=== PATIENT | male | born 1980 | race Caucasian/White ===

== ENCOUNTER 2017-03-20 16:55 | Emergency (ER) | payer SELFPAY ==
[~2017-03-20] VITALS: Ht 175.3 cm; Wt 61.0 kg
[~2017-03-20 16:55] MED LIST: GARL3CAP PO; WARF4TAB PO
[2017-03-20 18:31] VITALS: BP_DIAS 67
[2017-03-20 19:53] VITALS: BP_SYST 107
== END 2017-03-20 19:54 | disposition home or self-care (01) ==
LOC: ED 19:44
DX: F10.220 Alcohol dependence with intoxication, uncomplicated (principal); Z86.718 Personal history of other venous thrombosis and embolism
CPT/HCPCS: 99283

== ENCOUNTER 2017-05-14 05:28 | Emergency (ER) | payer SELFPAY ==
[~2017-05-14] VITALS: Ht 170.2 cm; Wt 58.0 kg
[2017-05-14 06:57] VITALS: BP 111/76
== END 2017-05-14 08:08 | disposition home or self-care (01) ==
LOC: ED 06:41
DX: M79.661 Pain in right lower leg (principal); F10.20 Alcohol dependence, uncomplicated; Z86.718 Personal history of other venous thrombosis and embolism; Z59.0 Homelessness
CPT/HCPCS: 99281; 99284

== ENCOUNTER 2018-09-02 08:11 | Emergency (ER) | payer MEDICAID ==
[~2018-09-02] VITALS: Ht 170.2 cm; Wt 63.4 kg
--- NOTE | 2018-09-02 08:35 | NUR ---
First contact with pt. Pt states, "I have a history of DVT's. For the last week I have started having the pain in my legs." NADN. Pt changing into hospital gown. Pt has steady gait and balance.
[2018-09-02] MEDS ORDERED: RIVA15TA PO (08:57)
--- NOTE | 2018-09-02 09:02 | NUR ---
CONTACT WITH PT. SITTING UP ON GURNEY, C/O PAIN BEHIND RIGHT KNEE. PT WITH HX OF DVT'S ON XARELTO. PAIN FEELS SIMILAR TO PRIOR DVT'S. JEANETTE EQUAL PEDAL PULSES. NO SWELLING NOTED. RIGHT FOOT SLIGHTLY REDDER THAN LEFT. BOTH FEET EQUALLY WARM. PT AWARE OF POC. REPORT TO JUNE NEGRO.
--- NOTE | 2018-09-02 09:37 | NUR ---
LATE NOTE ENTRY FOR 0925. PROVIDED PT BASIN WITH WARM WATER AND BETADINE TO SOAK FEET PER ED PA. FISCHER. NO OTHER NEEDS EXPRESSED AT THIS TIME.
--- NOTE | 2018-09-02 09:53 | NUR ---
Patient given discharge instructions and they have confirmed that they understand the instructions. Patient ambulatory with steady gait. PT LEFT WITH ALL PERSONAL BELONGINGS, DISCHARGE PAPERWORK, AND PRESCRIPTIONS.
[2018-09-02 09:54] VITALS: BP 109/67
== END 2018-09-02 10:10 | disposition home or self-care (01) ==
LOC: ED 09:59
DX: B35.3 Tinea pedis (principal); Z76.0 Encounter for issue of repeat prescription; M79.661 Pain in right lower leg
CPT/HCPCS: 99284

== ENCOUNTER 2018-09-20 03:24 | Emergency (ER) | payer MEDICAID ==
[~2018-09-20 03:24] MED LIST changes: +RIVA15TA PO
== END 2018-09-20 03:33 | disposition left against medical advice (07) ==
LOC: ED 03:27
DX: M79.89 Other specified soft tissue disorders (principal); Z53.21 Procedure and treatment not carried out due to patient leaving prior to being seen by health care provider

== ENCOUNTER 2019-01-13 07:36 | Emergency (ER) | payer MEDICAID ==
[~2019-01-13] VITALS: Ht 170.2 cm; Wt 125.0 kg
--- NOTE | 2019-01-13 07:53 | NUR ---
BIB [facility] AFTER BEING FOUND SLEEPING ON SIDEWALK AND HARD TO AROUSE. AOX2. GCS 15, HR 91 +ETOH UNKNOWN AMOUNT. PIPE FOUND. 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 PT SLEEPING ON GURNEY. NADN. POSITIONED FOR COMFORT. WARM BLANKETS PROVIDED.
--- NOTE | 2019-01-13 07:55 | NUR ---
DARIO KIRK AWARE OF PT HX DVT AND RX FOR XARELTO.
--- NOTE | 2019-01-13 08:33 | NUR ---
PT SLEEPING ON ELIAZAR. NADN. HORN.
--- NOTE | 2019-01-13 09:33 | NUR ---
PT SLEEPING ON ELIAZAR. NADN. HORN.
--- NOTE | 2019-01-13 10:38 | NUR ---
PT SLEEPING ON ELIAZAR. NADN. HORN.
[2019-01-13 11:26] VITALS: BP 103/64
--- NOTE | 2019-01-13 11:27 | NUR ---
PT SLEEPING ON ELIAZAR. NADN. HORN.
--- NOTE | 2019-01-13 12:32 | NUR ---
PT AMBULATORY W/ STEADY GAIT. AOX4. DENIES SI/HI. DC PAPERWORK PROVIDED. LUNCH PROVIDED.
== END 2019-01-13 12:38 | disposition home or self-care (01) ==
LOC: ED 09:00
DX: G31.2 Degeneration of nervous system due to alcohol (principal); F10.120 Alcohol abuse with intoxication, uncomplicated
CPT/HCPCS: 99283